=== PATIENT | female | born 1955 | race Caucasian/White ===

== ENCOUNTER 2020-03-10 11:35 | Outpatient (CLI) | payer BC, SELFPAY ==
--- NOTE | 2020-03-10 11:44 | MM_ITS ---
WS: [id number] SCREENING DIGITAL MAMMOGRAM WITH CAD HISTORY: SCREENING COMPARISON: 11/21/2018 and 01/31/2017 Bilateral CC and MLO views submitted. Computer aided detection analyzed. Breast composition: There are scattered areas of fibroglandular density. No suspicious masses, microc alcifications or architectural distortion. MM/[id number] IMPRESSION: BI-RADS: 1-Negative FOLLOW UP: 1 Year Follow-up
== END 2020-03-10 11:36 | disposition home or self-care (01) ==
LOC: RADSHAW 11:43
PROVIDERS: PCP Nurse Practitioner Family; Visit Provider Nurse Practitioner Family
DX: Z12.31 Encounter for screening mammogram for malignant neoplasm of breast (principal)
CPT/HCPCS: 77067

== ENCOUNTER → 2021-03-11 10:57 | Outpatient (BNVA) | payer OTHER, SELFPAY | PROVIDERS: PCP Family Medicine; Visit Provider Family Medicine | DX: E78.5 Hyperlipidemia, unspecified (principal); G47.00 Insomnia, unspecified; G43.909 Migraine, unspecified, not intractable, without status migrainosus; K21.9 Gastro-esophageal reflux disease without esophagitis; G44.209 Tension-type headache, unspecified, not intractable; J30.2 Other seasonal allergic rhinitis; F41.9 Anxiety disorder, unspecified; R53.83 Other fatigue | CPT/HCPCS: 80053; 80061; 82306; 84443; 85025 ==

== ENCOUNTER 2021-06-12 11:34 | Outpatient (CLI) | payer OTHER, SELFPAY ==
--- NOTE | 2021-06-12 11:42 | MM_ITS ---
WS: [id number] Bilateral screening digital mammogram, 06/12/2021 Clinical Data: SCREENING Comparison: 11/21/2018, 01/31/2017, 12/22/2015, 10/01/2014, 03/27/2013, 02/05/2011, 05/09/2008, 10/05/2006. Findings: The breast parenchymal pattern shows fibroglandular tissue No spiculated masses or clustered calcific ations are seen. There are no secondary signs of carcinoma. MM/[id number] Impression: 1. Negative bilateral mammogram unchanged. 2. Recommend annual screening mammograms. BIRADS: 1-Negative FOLLOW UP: 1 Year Follow-up The CAD electric organ checker was used.
== END 2021-06-12 11:35 | disposition home or self-care (01) ==
PROVIDERS: PCP Family Medicine; Visit Provider Family Medicine
DX: Z12.31 Encounter for screening mammogram for malignant neoplasm of breast (principal)
CPT/HCPCS: 77067

== ENCOUNTER → 2021-06-17 11:58 | Outpatient (BNVA) | payer OTHER, SELFPAY | PROVIDERS: PCP Family Medicine; Visit Provider Family Medicine | DX: E55.9 Vitamin D deficiency, unspecified (principal); E78.5 Hyperlipidemia, unspecified; F41.9 Anxiety disorder, unspecified; G44.209 Tension-type headache, unspecified, not intractable; G47.00 Insomnia, unspecified; J30.2 Other seasonal allergic rhinitis; G43.909 Migraine, unspecified, not intractable, without status migrainosus; K21.9 Gastro-esophageal reflux disease without esophagitis | CPT/HCPCS: 80053; 80061; 82306; 84443; 85025 ==

== ENCOUNTER → 2021-06-26 11:12 | Outpatient (BNVA) | payer OTHER, SELFPAY | PROVIDERS: PCP Family Medicine; Visit Provider Nurse Practitioner Family | DX: M25.532 Pain in left wrist (principal) | CPT/HCPCS: 73110 ==

== ENCOUNTER → 2021-10-13 10:02 | Outpatient (BNVA) | payer OTHER, SELFPAY | PROVIDERS: PCP Family Medicine; Visit Provider Family Medicine | DX: M25.562 Pain in left knee (principal) | CPT/HCPCS: 73562 ==

== ENCOUNTER 2022-01-22 06:37 | Outpatient (CLI) | payer OTHER, SELFPAY ==
--- NOTE | 2022-01-22 06:44 | MR_ITS ---
WS: [id number] MRI LEFT KNEE HISTORY: LEFT KNEE PAIN COMPARISON: Radiograph 10/13/2021 Anterior cruciate ligament: Intact. Posterior cruciate ligament: Intact. Medial collateral ligament: Small amount of fluid surrounding the MCL is probably related to arthriti s in the medial compartment. No MCL tear. Posterior lateral corner structures: Intact. Medial menisci: Abnormal signal in the anterior horn and towards the posterior horn free edge. There is partial subluxation of the meniscus from the joint space. Abnormal signal in the mid body consiste nt with a radial tear. This abnormal signal is in the far lateral mid body and partially extruded. Me niscus extends into the inferior recess. Posterior horn has increased signal which is probably intras ubstance degeneration. Lateral meniscus: There is very minimal blunting of the posterior horn towards the free edge. Abnorma l signal is noted also on the coronal view suggesting this is probably a small radial tear. Extensor mechanism: Distal quadriceps tendon and patellar tendons are intact. Fluid and soft tissue: There is a large suprapatellar joint effusion. Large Graham's cyst. Graham's cys t extends over length of at least 4.5 cm. There is a small amount of edema extending inferiorly from the Graham's cyst which may be reactive fluid or partial rupture. Osseous and articular structures: Patellofemoral compartment: Mild narrowing of patellofemoral compartment. No marrow edema. Medial compartment: Moderate narrowing medial compartment with bone upon bone and loss of cartilage. Marginal osteophytes. There is a small amount of reactive marrow edema in the medial femoral condyle and tibial plateau. Lateral compartment: Very mild narrowing of the lateral compartment. Mild thinning and fissuring of t he cartilage. There is fluid surrounding the fabella. MR/MR knee LT wo con* [id number] IMPRESSION: 1. Large suprapatellar joint effusion and Graham's cyst. 2. Moderate internal derangement medial compartment with loss of cartilage, ma rrow edema and joint space narrowing. 3. Partially extruded meniscus from the medial compartment predominantly invol ving the anterior horn. There is a focal radial tear near the mid body of the partial extrusion. Meniscus extends slightly into the inferior recess. 4. Additional blunting free edge posterior horn lateral meniscus. Favor vertic al tear.
== END 2022-01-22 06:38 | disposition home or self-care (01) ==
LOC: RAD 06:38
PROVIDERS: PCP Family Medicine; Visit Provider Family Medicine
DX: M25.562 Pain in left knee (principal); M25.462 Effusion, left knee; M71.22 Synovial cyst of popliteal space [Baker], left knee
CPT/HCPCS: 73721

== ENCOUNTER 2022-04-19 12:30 | Observation (INO) | payer OTHER, SELFPAY ==
[2022-04-13 10:47] VITALS: BMI 29.2
--- NOTE | 2022-04-13 12:01 | ANES.PREANE2 ---
Pre-Anesthetic Assessment Height/Weight: Height 1.5 m Weight 65.771 kg Preop Diagnosis: OsteoarthritisLeft knee Operation Date: 04/19/22 12:10 Proposed Procedures p Left total knee arthroplasty:43073,M17.12(Left) - Lionel Hernandez MD Familial anesthetic complications: none Was Beta Di taken within 24 hours: N/A Was Clonidine taken within 24 hours: N/A Social No alcohol and No tobacco Exam alert, oriented x 3, clear to auscultation bilaterally and regular rate & rhythm Airway Submandibular: within normal limits Cervical ROM: within normal limits Mallampati: Class II Dentition: false GI Gastroesophageal Reflux Disease Metabolic Hyperlipidemia Neuropsych Anxiety Anesthetic Plan ASA status: 2 Anesthesia: Regional (specify below) (SAB with adductor blk) Medications/Allergies Home Medications Medication Instructions Recorded Confirmed Last Taken Type rjfytnuaza-ivfkeoptdjrml-ideddtgh 1 tab PO Q6H PRN #30 tab 06/17/21 04/13/22 Unknown Rx 50 mg-325 mg-40 mg tablet clonazepam 0.5 mg tablet 0.5 mg PO DAILY PRN #20 tab 06/17/21 04/13/22 Unknown Rx fluticasone propionate 50 1 spray INTRANASAL BID #16 gm 06/17/21 04/13/22 Unknown Rx mcg/actuation nasal spray,suspension (Flonase Allergy Relief) diclofenac sodium 1 % topical gel 4 g TOPICAL BID g 10/13/21 04/13/22 Unknown History meloxicam 7.5 mg tablet 7.5 mg PO DAILY 10/13/21 04/13/22 Unknown History acyclovir 5 % topical cream 1 applic TOPICAL TID PRN 04/13/22 04/13/22 Unknown History cetirizine 10 mg tablet 10 mg PO DAILY 04/13/22 04/13/22 Unknown History cholecalciferol (vitamin D3) 25 25 mcg PO DAILY 04/13/22 04/13/22 Unknown History mcg (1,000 unit) capsule (Vitamin D3) lysine 1,000 mg tablet 1,000 mg PO DAILY 04/13/22 04/13/22 Unknown History magnesium citrate 100 mg capsule 100 mg PO DAILY 04/13/22 04/13/22 Unknown History omeprazole 40 mg capsule,delayed 40 mg PO DAILY 04/13/22 04/13/22 Unknown History release rosuvastatin 5 mg tablet 5 mg PO BEDTIME 04/13/22 04/13/22 Unknown History trazodone 100 mg tablet 100 mg PO BEDTIME 04/13/22 04/13/22 Unknown History Allergies Allergy/AdvReac Type Severity Reaction Status Date / Time No Known Allergies Allergy Verified 03/09/22 09:18 [facility] Anesthesia Medical History Dyslipidemia Insomnia Migraine Family History Other CAD (coronary artery disease) COPD (chronic obstructive pulmonary disease) Diabetes Social History Smoking and tobacco status: never smoked Second hand smoke exposure: No Alcohol intake: current Alcohol intake frequency: holidays/special occasions only Alcohol type: wine Caregiver/support person: No Lives independently: Yes Household members: spouse Marital status: service: No Current occupational status: retired History of recent travel: Yes Details: 05/23 Out of state: Yes Current gender identity: Female Special beau needs: No Data Anesthesia Cardiac Studies: No Data to Display
[2022-04-19] VITALS (29 sets, daily range): BP systolic 102–157; BP diastolic 59–93; PULSE 58–124; RESP 13–26; TEMP 36.2–36.9; O2SAT 95–100
[2022-04-19] MEDS: sodium chloride 0.9% 1,000 ML 30 ML IV (08:17)
[2022-04-19] MEDS: oxyCODONE 20 mg ER (12 HR) Tablet PO (08:19)
[2022-04-19] MEDS: gabapentin 300 mg Capsule PO ×2 (08:19→18:27)
[2022-04-19] MEDS: CELEcoxib 200 mg Capsule 400 MG PO (08:20)
[2022-04-19] MEDS: acetaminophen 500 mg Tablet 1000 MG PO ×2 (08:20→15:44)
--- NOTE | 2022-04-19 08:42 | P.ANESUD_ITS ---
Pre-Anesthetic Update Pre-Anesthetic Assessment: Date of Surgery/Procedure: 04/19/22 Preop Christin gnosis: OsteoarthritisLeft knee Proposed Procedure: Operation Date: 04/19/22 09:35 Proposed Procedures p Left total knee arthroplasty:94508,M17.12(Left) - Lionel Hernandez MD Any changes to Pre-Anesthetic Assessment?: No Last Intake: Intake Last Liquid Date 04/18/22 Last Liquid Time 22:00 Last Solid Date 04/18/22 Last Solid Time 22:00 Vitals: Temperature 98.4 F 04/19/22 07:52 Temperature Source Temporal Artery S can 04/19/22 07:52 Pulse Rate 74 04/19/22 07:52 Respiratory Rate 18 04/19/22 08:19 Respiratory Effort 04/19/22 08:19 Respiratory Depth Normal 04/19/22 08:19 Respiratory Patter n 04/19/22 08:19 Blood Pressure 157/93 04/19/22 07:52 Blood Pressure Elana n 114 04/19/22 07:52 Pulse Oximetry 98 04/19/22 08:19 Oxygen Delivery Me thod 04/19/22 07:53 Exam: Pre-Anes Outpt Exam: alert, oriented x 3, clear to auscultation bilaterally and regular rate & rhythm Cardiac Studies: No Data to Display
--- NOTE | 2022-04-19 08:42 | ANES.PROC ---
Anesthesia Procedures Procedure/Date: 04/19/22 Nerve Block ^: Nerve Block 1: Main Anesthesia: spinal anesthesia block Time Out Performed: Yes Consent: requested by attending/covering physician, from patient, risks and benefits reviewed and patient agrees to proceed Nerve block location: adductor canal (L) Anesthesia monitors applied: pulse oximetry, EKG, BP cuff and oxygen Nerve block position: semi sitting Anesthetic Used: ropivicaine 0.5% (30) and with decadron (4 mg) Ultrasound used to: recognize landmarks and visualize and ID femerol nerve Nerve Stimulator Used?: No Interscalene/Femoral BLK: 2 stimuplex 22 g needle used for position and inplane approach, visualize local anesthetic spread and no vascular puncture identified Injection: neg aspiration of heme Patient Tolerated Procedure: well Complications: none
--- NOTE | 2022-04-19 10:13 | P.HP_ITS ---
Same Day Surgery H&P Indication for Procedure/HPI DATE OF PROCEDURE: April 19, 2022 CHIEF COMPLAINT/INDICATIONFOR SURGICAL PROCEDURE: Osteoarthritis left knee here for total knee replacement PREOP DIAGNOSIS: OsteoarthritisLeft knee PLANNED PROCEDURE: Operation Date: 04/19/22 09:35 Proposed Procedures p Left total knee arthroplasty:47162,M17.12(Left) - Lionel Hernandez MD 66-year-old female with nearly 1 year history of progressive knee pain. Has tried multiple anti-inflammatories injections without help. Describes an inab ility to ambulate more than 1 block without pain. Difficulty sleeping at night. Here for left total knee arthroplasty Medications/Allergies* Home Medications Medication Instructions Recorded Confirmed Type diclofenac sodium 1 % topical gel 4 g TOPICAL BID g 10/13/21 04/19/22 History meloxicam 7.5 mg tablet 7.5 mg PO DAILY 10/13/21 04/19/22 History acyclovir 5 % topical cream 1 applic TOPICAL TID PRN 04/13/22 04/19/22 History cetirizine 10 mg tablet 10 mg PO DAILY 04/13/22 04/19/22 History cholecalciferol (vitamin D3) 25 25 mcg PO DAILY 04/13/22 04/19/22 History mcg (1,000 unit) capsule (Vitamin D3) lysine 1,000 mg tablet 1,000 mg PO DAILY 04/13/22 04/19/22 History magnesium citrate 100 mg capsule 100 mg PO DAILY 04/13/22 04/19/22 History omeprazole 40 mg capsule,delayed 40 mg PO DAILY 04/13/22 04/19/22 History release rosuvastatin 5 mg tablet 5 mg PO BEDTIME 04/13/22 04/19/22 History trazodone 100 mg tablet 100 mg PO BEDTIME 04/13/22 04/19/22 History Allergies/Adverse Reactions Allergy/AdvReac Type Severity Reaction Status Date / Time No Known Allergies Allergy Verified 04/19/22 08:02 Current Medications: Generic Name Dose Route Start Last Admin Trade Name Freq PRN Reason Stop Dose Admin Sodium Chloride 1,000 mls @ 30 mls/hr 04/19/22 07:45 04/19/22 08:17 Sodium Chloride 0.9% IV 04/20/22 07:44 30 mls/hr .Q24H TERESA Administration Pertinent History/Comorbid Conditions* Medical History (Updated 03/09/22 @ 09:54 by Lionel Hernandez MD) Dyslipidemia Insomnia Migraine Family History (Updated 04/07/20 @ 09:41 by Estefani Hwang LPN) Diabetes CAD (coronary artery disease) COPD (chronic obstructive pulmonary disease) Social History Smoking and tobacco status: never smoked Second hand smoke exposure: No Alcohol intake: current Alcohol intake frequency: holidays/special occasions only Alcohol type: wine Caregiver/support person: No Lives independently: Yes Household members: spouse Marital status: service: No Current occupational status: retired History of recent travel: Yes Details: [place] 05/23 Out of state: Yes Current gender identity: Female Special beau needs: No Pertinent Exam Findings alert, oriented x 3, clear to auscultation bilaterally, regular rate & rhythm and operative site marked Recommendations Surgery/Procedure today Coding Level of Care Code Acute Automatic Cigar Wrapper Tender for Elisabeth Kiran
[2022-04-19] MEDS: ceFAZolin 2,000 MG in sodium chloride 0.9% (plus) 50 ML 100 MG IV ×2 (10:23→18:27)
[2022-04-19] MEDS: tranexamic acid 1,000 mg/10mL SDV 1000 MG IV (10:40)
[2022-04-19] MEDS: tobramycin 40 mg/mL SDV 2mL 160 MG INJECTION (11:10)
[2022-04-19] MEDS: sodium chloride 0.9% 100 mL Bag XX (11:12)
[2022-04-19] MEDS: tranexamic acid 1,000 mg/10mL SDV 1000 MG XX (11:13)
[2022-04-19] MEDS: ketorolac 30 mg/mL INJ XX (11:14)
[2022-04-19] MEDS: EPINEPHrine 1 mg/mL INJ XX (11:15)
--- NOTE | 2022-04-19 12:07 | P.OP_ITS ---
Operative Report Date of procedure: April 19, 2022 Pre-op diagnosis: Preop Diagnosis OsteoarthritisLeft knee Post-op diagnosis: same Post-op diagnosis: Same Post-op findings: Same Procedure done: Left total knee arthroplasty Implants: [place] total knee arthroplasty components were used includin) Size 3 triathalon cruciate retaining femoral component 2) Size 4 Tritanium tibial component 3) 29 mm /9 mm thickness Tritanium asymetric patella 4) Size 4/9 mm thickness CR tibial bearing insert Pathology: none sent Surgeon: Lionel Hernandez Anesthesia: Nerve Block (Spinal, adductor canal block) Estimated blood loss (mL): 100 Findings: The patient eburnated bone over the medial femoral condyle and medial tibial plateau and near full-thickness loss over the patella Condition: stable Disposition: PACU Procedure: The patient was taken to the operating room. Patient was given 1 g of tranexamic acid . The above anesthesia provided by the anesthesia service. A timeout was performed. The patient was prepped and draped in the usual fashion with the lower extremity exposed. A anterior incision was made, midline, from a point proximal to the patella to the distal tibial tubercle. The knee was entered through a medial parapatellar approach. The patella could be displaced laterally and the knee flexed. The patellar fat pad was resected to provide better visibility. Retractors were placed medially and laterally adjacent to the tibial plateau. The femoral canal was drilled in line with the longitudinal axis of the femur. Intramedullary femoral guide for used to make a distal femoral cut in 5 degrees of valgus, resecting 8 mm from the more prominent condyle. Next the extra medullary tibial guide was placed in alignment with the longitudinal axis of the tibia. The cutting guides were set to remove just over 9 mm from the high tibial plateau. The proximal tibia was then cut. The femoral measuring guide was then placed over the distal femur. Rotation was verified checking the relationship of the guide to the condyle and the trochlear groove. The femur was measured and cut for the desired femoral component. The desired tibial baseplate was then chosen. A trial reduction with the femur tibial baseplate and polyethylene was done, assuring that the knee was stable throughout full motion. Ligament balancing involved nothing more than a release of the deep medial collateral ligament.The tibia was prepared for the tibial baseplate. Patellar thickness was then measured. The patella was cut removing articular cartilage and prepared for appropriate size patellar button. surfaces were cleaned with a gentamicin solution. The femur tibia and patella were then press- fit into place. The posterior capsule and collateral ligaments were then injected with a solution of 100 mL of 0.2% ropivacaine, 1 mL of a 1:1000 epinephrine solution, 30 mg of Toradol, and 1 g of tranexamic acid. Final polyethylene component was then snapped into place into the tibia. The extensor retinaculum was closed with a running 1 Stratafix interrupted 1 Ethibond. The subcutaneous tissues were closed with 2-0 Vicryl and the skin was closed with a running 4-0 Stratafix. The wound was covered with a Dermabond Prineo dressing. It was covered with 4xrs and a compressive Tubigauze was applied. The patient was taken to recovery room in stable condition.
--- NOTE | 2022-04-19 12:15 | XR_ITS ---
WS: [id number] XR knee LT -2V [id number] REASON FOR EXAM: Status post left total knee FINDINGS: Total left knee arthroplasty. Prosthetic components are in proper position and alignment. No bony abnormality. XR/XR [place] - [id number] IMPRESSION: Total left knee arthroplasty without abnormality.
--- NOTE | 2022-04-19 17:00 | ANE.PACU2 ---
Inpatient post-anesthesia follow up: Airway intact: Yes Vital signs: Temperature 97.6 F Pulse Rate 66 Respiratory Rate 16 Blood Pressure 128/78 Pulse Oximetry 100 Oxygen Delivery Me thod Room Air Oxygen Flow Rate 5 Fraction of Inspir ed Oxygen Hydration adequate: Yes Nausea and vomiting: No Pain level: 1 Mental status: Baseline
[2022-04-19] MEDS: oxyCODONE 5 mg IR Tab/Cap PO (19:00)
[2022-04-19] MEDS: CELEcoxib 200 mg Capsule PO (22:00)
[2022-04-20 00:04] VITALS: RESP 15
[2022-04-20] MEDS: oxyCODONE 5 mg IR Tab/Cap PO ×3 (00:04→10:54)
[2022-04-20] MEDS: acetaminophen 500 mg Tablet 1000 MG PO ×2 (00:04→08:58)
[2022-04-20] MEDS: ceFAZolin 2,000 MG in sodium chloride 0.9% (plus) 50 ML 100 MG IV ×2 (02:33→10:55)
[2022-04-20 04:13] VITALS: BP 130/77; PULSE 58; TEMP 36.7; O2SAT 98
[2022-04-20 05:54] VITALS: RESP 15
[2022-04-20] MEDS: sodium chloride 0.9% 1,000 ML 70 ML IV (05:55)
[2022-04-20] MEDS: ondansetron 2 mg/ML SDV 2 mL 4 MG IVP (08:02)
[2022-04-20] MEDS: pantoprazole DR 40 mg Tablet PO (08:59)
[2022-04-20] MEDS: gabapentin 300 mg Capsule PO (08:59)
[2022-04-20] MEDS: CELEcoxib 200 mg Capsule PO (08:59)
[2022-04-20] MEDS: aspirin 325 mg EC Tablet PO (08:59)
--- NOTE | 2022-04-20 09:04 | P.DS_ITS ---
Discharge Providers Date of Admission: 04/19/22 12:30 Date of Discharge: April 20, 2022 Attending Provider at Admission: Lionel Ross MD Attending Provider at Discharge: Lionel Ross MD Primary Care Provider: Suzanna Chilel MD Hospital Course Hospital Course The patient tolerated surgery well. They remained hemodynamically stable. They was begun on aspirin and foot for DVT prophylaxis. The patient was mobilized with therapy beginning the day of surgery and by the first postoperative day independent with the walker. As the pain was adequately controlled and they were fully mobile they were discharged home. Physical Exam Narrative: On the day of discharge the knee incision was clean. They had no drainage. There is minimal swelling in the thigh and knee and the calf. No distal neurovascular deficits were noted Discharge Data Studies Completed and Pending Completed Studies During Hospitalization Category Date Time Status XR knee LT 1-2V [id number] Routine Exams 04/19/22 12:15 Completed Radiology Impressions Knee X-Ray 04/19/22 12:15 IMPRESSION: Total left knee arthroplasty without abnormality. Laboratory Results Hgb 9.0 g/dL (11.5-15.3) L 04/20/22 04:06 Vitals Last Vital Signs Temp 98.1 F 04/20/22 04:13 Pulse 58 L 04/20/22 04:13 Resp 15 04/20/22 05:54 BP 130/77 04/20/22 04:13 Pulse Ox 98 04/20/22 04:13 Discharge Plan Discharge Patient Disposition: Home Condition: Stable Prescriptions: New oxycodone 5 mg Tablet 5 mg PO Q4H PRN (Reason: Moderate Pain) 7 Days Qty: 30 0RF acetaminophen 500 mg Tablet 1,000 mg PO Q8H 14 Days Qty: 84 0RF aspirin 325 mg Tablet,Delayed Release (Dr/Ec) 325 mg PO DAILY 30 Days Qty: 30 0RF celecoxib 200 mg Capsule 200 mg PO Q12H 14 Days Qty: 28 0RF gabapentin 300 mg Capsule 300 mg PO BID 7 Days Qty: 14 0RF Continued clonazepam 0.5 mg tablet 0.5 mg PO DAILY PRN (Reason: anxiety) Qty: 20 2RF gfyeupjklq-vbtnmltkoywsg-qniu 50-325-40 mg tablet 1 tab PO Q6H PRN (Reason: pain) Qty: 30 5RF fluticasone propionate [Flonase Allergy Relief] 50 mcg/actuation spray,suspension 1 spray INTRANASAL BID Qty: 16 5RF Rx Instructions: administer into each nostril diclofenac sodium 1 % gel 4 g topical BID 0RF Rx Instructions: apply to single knee, ankle, foot; for foot includes sole/toes/top of foot rosuvastatin 5 mg tablet 5 mg PO BEDTIME Qty: 90 0RF trazodone 100 mg tablet 100 mg PO BEDTIME Qty: 90 0RF omeprazole 40 mg capsule,delayed release(DR/EC) 40 mg PO DAILY Qty: 90 0RF lysine 1,000 mg Tablet 1,000 mg PO DAILY 0RF cholecalciferol (vitamin D3) [Vitamin D3] 25 mcg (1,000 unit) Capsule 25 mcg PO DAILY 0RF magnesium citrate 100 mg Capsule 100 mg PO DAILY 0RF cetirizine 10 mg tablet 10 mg PO DAILY 0RF acyclovir 5 % cream 1 applic topical TID PRN (Reason: FEVER BLISTER) 0RF Held meloxicam 7.5 mg tablet 7.5 mg PO DAILY 0RF Hold Instructions: Resume on 05/04/22. Discharge Orders: Discharge Order (Routine); Ordered 04/20/22 Ordered By: Lionel Ross Referrals: Jose A Ibanez FNP [Physician Needle Punch Machine Operator] - 04/23/22 9:00 am Discharge Activity: Limit activity as instructed Patient Instructions: Opioid Safety Activity Restrictions/Additional Instructions: Okay to shower Keep Tubigauze sleeve in place for swelling. Okay to remove for hygiene. Apply FirstIce up to 20 min/hr for pain and swelling Take Celebrex twice a day for the next 15 days for pain , discontinue other anti-inflammatories Take Neurontin twice a day for 7 days. Take Tylenol 500mg (2 tabs) as needed 3 times a day for mild pain take oxycodone for breakthrough pain. Exercises per physical therapy. May weight-bear as tolerated on total knee arthroplasty IF HAVE ANY PROBLEMS OR QUESTIONS CALL [facility] AND ASK TO HAVE DR. ROSS PAGESapna. Discharge Attestations Time Spent in Discharge Care*: other Quality Metrics Clinical Quality Measures [ No reported AMI, CVA or VTE this stay] Coding Level of Care Code Acute Chg FW DC note
[2022-04-20 10:54] VITALS: RESP 14
[2022-04-20 11:40] VITALS: BP 128/78; PULSE 66; RESP 16; TEMP 36.4; O2SAT 100
[2022-04-20 13:20] VITALS: BP 128/78; PULSE 66; RESP 16; TEMP 36.4; O2SAT 100
== END 2022-04-20 13:20 | disposition home or self-care (01) ==
LOC: MEDSURG 12:45 → OBGYN 13:32
PROVIDERS: Admitting Provider Orthopaedic Surgery; PCP Family Medicine; Visit Provider Orthopaedic Surgery
PROC: (CPT 27447; principal; 2022-04-19 09:15)
DX: M17.12 Unilateral primary osteoarthritis, left knee (principal); K21.9 Gastro-esophageal reflux disease without esophagitis; E78.5 Hyperlipidemia, unspecified; F41.9 Anxiety disorder, unspecified; Z82.49 Family history of ischemic heart disease and other diseases of the circulatory system; Z83.3 Family history of diabetes mellitus
CPT/HCPCS: 27447; 36415; 73560; 85018; 97110; 97116; 97161; 97165; C1776; G0378; J0171; J1100; J1885; J2250; J2405; J2704; J2795; J3010; J3260; J3490; J7030

== ENCOUNTER 2022-05-17 06:00 | Outpatient (RCR) | payer OTHER, BC, MEDICAID, SELFPAY | END 2022-06-02 23:59 | disposition home or self-care (01) | LOC: APT 06:00 | PROVIDERS: PCP Family Medicine; Visit Provider Orthopaedic Surgery | DX: Z96.652 Presence of left artificial knee joint (principal) | CPT/HCPCS: 97110; 97140; 97161 ==

== ENCOUNTER → 2022-05-18 14:05 | Outpatient (BNVA) | payer OTHER, BC, SELFPAY | PROVIDERS: PCP Family Medicine; Visit Provider Family Medicine | DX: E55.9 Vitamin D deficiency, unspecified (principal); E78.5 Hyperlipidemia, unspecified; D64.9 Anemia, unspecified | CPT/HCPCS: 80053; 80061; 82306; 84443; 85025 ==

== ENCOUNTER → 2022-05-20 08:50 | Outpatient (BNVA) | payer OTHER, BC, SELFPAY | PROVIDERS: PCP Family Medicine; Visit Provider Nurse Practitioner Family | DX: Z96.652 Presence of left artificial knee joint (principal) | CPT/HCPCS: 73560; 73565 ==

== ENCOUNTER 2022-06-03 06:00 | Outpatient (RCR) | payer OTHER, BC, MEDICAID, SELFPAY | END 2022-07-02 23:59 | disposition home or self-care (01) | LOC: APT 06:00 | PROVIDERS: PCP Family Medicine; Visit Provider Orthopaedic Surgery | DX: Z96.652 Presence of left artificial knee joint (principal) | CPT/HCPCS: 97110; 97140 ==

== ENCOUNTER 2022-07-16 09:34 | Outpatient (CLI) | payer BC, MEDICAID, SELFPAY ==
--- NOTE | 2022-07-16 10:01 | MM_ITS ---
WS: [id number] Bilateral screening 3D tomosynthesis digital mammogram, 07/16/2022 Clinical Data: SCREEN Comparison: 05/12/2021, 03/10/2020, 11/21/2018, 01/31/2017, 12/22/2015, 10/01/2014, 03/27/2013, 02/05/2011, 05/09, 10/05/2006. Findings: The breast parenchymal pattern shows fibroglandular tissue. No spiculated masses or clustered calcifi cations are seen. There are no secondary signs of carcinoma. MM/[place] [id number] Impression: 1. Negative bilateral mammogram unchanged. 2. Recommend annual screening mammograms. BIRADS: 1-Negative FOLLOW UP: 1 Year Follow-up The CAD checker cashier was used.
== END 2022-07-16 09:35 | disposition home or self-care (01) ==
LOC: RAD 09:34
PROVIDERS: PCP Family Medicine; Visit Provider Family Medicine
DX: Z12.31 Encounter for screening mammogram for malignant neoplasm of breast (principal)
CPT/HCPCS: 77063; 77067

== ENCOUNTER → 2022-08-12 09:39 | Outpatient (BNVA) | payer BC, MEDICAID, SELFPAY | PROVIDERS: PCP Family Medicine; Visit Provider Nurse Practitioner Family | DX: Z96.652 Presence of left artificial knee joint (principal) | CPT/HCPCS: 73560; 73565 ==

== ENCOUNTER → 2022-12-29 09:44 | Outpatient (BNVA) | payer MEDICARE, MEDICAID, SELFPAY | PROVIDERS: PCP Family Medicine; Visit Provider Orthopaedic Surgery | DX: M17.11 Unilateral primary osteoarthritis, right knee (principal) | CPT/HCPCS: 73560; 73565; 99213 ==

== ENCOUNTER 2022-12-31 12:48 | Outpatient (CLI) | payer MEDICARE, MEDICAID, SELFPAY ==
--- NOTE | 2022-12-31 13:00 | CT_ITS ---
WS: [id number] CT RIGHT KNEE, NONCONTRAST TECHNIQUE: Noncontrast CT of the RIGHT knee to include the RIGHT hip and ankle. CLINICAL INFORMATION: pre op planning COMPARISON: None. DLP: 885.[address] scans at [facility] use at least one of these dose optimization techniques: automated e xposure control; mA and/or kV adjustment per patient size (includes targeted exams where dose is matc hed to clinical indication); or iterative reconstruction. FINDINGS: LEFT TKA. Moderate arthritis RIGHT knee with moderate medial compartment narrowing. Moderate degenera tive narrowing at the patellofemoral articulation. Small suprapatellar effusion. Slight hypertrophic changes along the joint line. A few sigmoid diverticuli. CT/CT knee RT wo con* [id number] IMPRESSION: Images obtained for preoperative purposes.
== END 2022-12-31 12:49 | disposition home or self-care (01) ==
LOC: RAD 12:53
PROVIDERS: PCP Family Medicine; Visit Provider Orthopaedic Surgery
DX: Z01.818 Encounter for other preprocedural examination (principal); M13.861 Other specified arthritis, right knee
CPT/HCPCS: 73700

== ENCOUNTER 2023-01-31 09:46 | Observation (INO) | payer MEDICARE, MEDICAID, SELFPAY ==
[2023-01-24 09:21] VITALS: BMI 28.3
--- NOTE | 2023-01-24 15:56 | ANES.PREANE2 ---
Pre-Anesthetic Assessment Height/Weight: Height 1.5 m Weight 63.503 kg Preop Diagnosis: OsteoarthritisLeft knee Operation Date: 01/31/23 10:15 Proposed Procedures p right total knee makoplasty/ 53760,m17.11(Right) - Lionel Hernandez MD Familial anesthetic complications: none Was Beta Di taken within 24 hours: N/A Was Clonidine taken within 24 hours: N/A Social No alcohol and No tobacco Exam alert, oriented x 3, clear to auscultation bilaterally and regular rate & rhythm Airway Submandibular: within normal limits Cervical ROM: within normal limits Mallampati: Class II Dentition: false GI Gastroesophageal Reflux Disease Metabolic Hyperlipidemia [facility] [place] Osteoarthritis/DJD Neuropsych Anxiety and Depression Anesthetic Plan ASA status: 2 Anesthesia: Regional (specify below) (SAB with adductor blk) Medications/Allergies Home Medications Medication Instructions Recorded Confirmed Last Taken Type lysine 1,000 mg tablet 1,000 mg PO DAILY 04/13/22 01/24/23 01/24/23 History acyclovir 5 % topical cream 1 applic topical TID PRN FEVER 04/28/22 01/24/23 Unknown Rx BLISTER #5 grams tznctvmfft-cgoxqjonqlhgi-gfnbglbh 1 tab PO Q6H PRN pain #30 tabs 04/28/22 01/24/23 Unknown Rx 50 mg-325 mg-40 mg tablet clonazepam 0.5 mg tablet 0.5 mg PO DAILY PRN anxiety #20 04/28/22 01/24/23 Unknown Rx tabs diclofenac sodium 1 % topical gel 4 g topical BID #100 grams 04/28/22 01/24/23 Unknown Rx cetirizine 10 mg tablet (Allergy 10 mg PO DAILY 01/24/23 01/24/23 01/24/23 History Relief (cetirizine)) fluticasone propionate 50 1 spray intranasal BID 01/24/23 01/24/23 01/24/23 History mcg/actuation nasal spray,suspension omeprazole 40 mg capsule,delayed 40 mg PO DAILY 01/24/23 01/24/23 01/24/23 History release rosuvastatin 5 mg tablet 5 mg PO DAILY 01/24/23 01/24/23 01/24/23 History trazodone 100 mg tablet 100 mg PO DAILY 01/24/23 01/24/23 01/24/23 History Allergies Allergy/AdvReac Type Severity Reaction Status Date / Time No Known Allergies Allergy Verified 12/29/22 10:11 [facility] Anesthesia Medical History (Updated 12/29/22 @ 10:19 by Lionel Hernandez MD) Dyslipidemia Insomnia Migraine Family History Other CAD (coronary artery disease) COPD (chronic obstructive pulmonary disease) Diabetes Social History Smoking and tobacco status: never smoked Second hand smoke exposure: No Alcohol intake: current Alcohol intake frequency: holidays/special occasions only Alcohol type: wine Substance/Drug Use: never Caregiver/support person: No Lives independently: Yes Household members: spouse Marital status: service: No Current occupational status: retired Current gender identity: Female Special beau needs: No Data Anesthesia Cardiac Studies: No Data to Display
[2023-01-31] VITALS (22 sets, daily range): BP systolic 103–149; BP diastolic 59–83; PULSE 62–89; RESP 15–19; TEMP 35.6–36.5; O2SAT 87–98
[2023-01-31] MEDS: sodium chloride 0.9% 1,000 ML 30 ML IV (06:00)
[2023-01-31] MEDS: acetaminophen 500 mg Tablet 1000 MG PO ×3 (06:05→22:46)
[2023-01-31] MEDS: oxyCODONE 20 mg ER (12 HR) Tablet PO (06:06)
[2023-01-31] MEDS: CELEcoxib 200 mg Capsule 400 MG PO (06:06)
[2023-01-31] MEDS: gabapentin 300 mg Capsule PO ×2 (06:06→17:27)
--- NOTE | 2023-01-31 06:50 | P.ANESUD_ITS ---
Pre-Anesthetic Update Pre-Anesthetic Assessment: Date of Surgery/Procedure: 01/31/23 Preop Christin gnosis: Osteoarthritis right knee Proposed Procedure: Operation Date: 01/31/23 07:00 Proposed Procedures p right total knee makoplasty/ 02238,m17.11(Right) - Lionel Hernandez MD Any changes to Pre-Anesthetic Assessment?: No Last Intake: Intake Last Liquid Date 01/30/23 Last Liquid Time 21:30 Last Solid Date 01/30/23 Last Solid Time 21:30 Vitals: Temperature 97.7 F 01/31/23 05:49 Temperature Source Temporal Artery S can 01/31/23 05:49 Pulse Rate 64 01/31/23 05:49 Respiratory Rate 16 01/31/23 06:06 Respiratory Effort Spontaneous 01/31/23 06:06 Respiratory Depth Normal 01/31/23 06:06 Respiratory Patter n Normal 01/31/23 06:06 Blood Pressure 139/73 01/31/23 05:49 Blood Pressure Elana n 95 01/31/23 05:49 Pulse Oximetry 98 01/31/23 06:06 Oxygen Delivery Me thod Room Air 01/31/23 05:49 Exam: Pre-Anes Outpt Exam: alert, oriented x 3, clear to auscultation bilaterally and regular rate & rhythm Cardiac Studies: No Data to Display
--- NOTE | 2023-01-31 06:50 | ANES.PROC ---
Anesthesia Procedures Procedure/Date: 01/31/23 Nerve Block ^: Nerve Block 1: Main Anesthesia: spinal anesthesia block Time Out Performed: Yes Consent: requested by attending/covering physician, from patient, risks and benefits reviewed and patient agrees to proceed Nerve block location: adductor canal Anesthesia monitors applied: pulse oximetry, EKG, BP cuff and oxygen Nerve block position: supine Anesthetic Used: ropivicaine 0.5% (30 ml) and with decadron (4 mg) Ultrasound used to: recognize landmarks and visualize and ID femerol nerve Nerve Stimulator Used?: No Interscalene/Femoral BLK: 4 stimuplex 21 g needle used for position and inplane approach, visualize local anesthetic spread and no vascular puncture identified Injection: neg aspiration of heme Patient Tolerated Procedure: well and no complications Complications: none
--- NOTE | 2023-01-31 07:10 | W.PM.OPSFHP ---
Same Day Surgery H&P Indication for Procedure/HPI DATE OF PROCEDURE: January 31, 2023 CHIEF COMPLAINT/INDICATIONFOR SURGICAL PROCEDURE: Osteoarthritis of right knee here for total knee arthroplasty PREOP DIAGNOSIS: Osteoarthritis right knee PLANNED PROCEDURE: Operation Date: 01/31/23 07:00 Proposed Procedures p right total knee makoplasty/ 46360,m17.11(Right) - Lionel Hernandez MD 67-year-old here for right total knee arthroplasty. Has had right knee pain that has been present now for well over a year.? She underwent a left total knee arthroplasty and did very well with.? She describes now her right knee being more limiting issue.? She states she is really unable to walk at times more than a block due to pain.? She tried injections in the past on the left knee and they never helped and she does not think this is reasonable for the right.? She is taken [id number] ibuprofen and Naprosyn without improvement.? She states things is steadily progressing.? She is unable to engage in activities that she otherwise would enjoy to do.? For example she [place] and was unable to make it back in fourth [facility] she [facility] to [facility] due to pain.? Had no problems with her left total knee. Medications/Allergies* Home Medications Medication Instructions Recorded Confirmed Type lysine 1,000 mg tablet 1,000 mg PO DAILY 04/13/22 01/31/23 History cetirizine 10 mg tablet (Allergy 10 mg PO DAILY 01/24/23 01/31/23 History Relief (cetirizine)) fluticasone propionate 50 1 spray intranasal BID 01/24/23 01/31/23 History mcg/actuation nasal spray,suspension omeprazole 40 mg capsule,delayed 40 mg PO DAILY 01/24/23 01/31/23 History release rosuvastatin 5 mg tablet 5 mg PO DAILY 01/24/23 01/24/23 History trazodone 100 mg tablet 100 mg PO DAILY 01/24/23 01/24/23 History diclofenac sodium 1 % topical gel 4 g topical BID PRN arthritis 01/31/23 01/24/23 History Allergies/Adverse Reactions Allergy/AdvReac Type Severity Reaction Status Date / Time No Known Allergies Allergy Verified 12/29/22 10:11 Current Medications: Generic Name Dose Route Start Last Admin Trade Name Freq PRN Reason Stop Dose Admin Sodium Chloride 1,000 mls @ 30 mls/hr 01/31/23 05:45 01/31/23 06:00 Sodium Chloride 0.9% IV 02/01/23 05:44 30 mls/hr .Q24H TERESA Administration Pertinent History/Comorbid Conditions* Medical History (Updated 12/29/22 @ 10:19 by Lionel Hernandez MD) Dyslipidemia Insomnia Migraine Family History (Updated 04/07/20 @ 09:41 by Estefani Hwang LPN) Diabetes CAD (coronary artery disease) COPD (chronic obstructive pulmonary disease) Social History Smoking and tobacco status: never smoked Second hand smoke exposure: No Alcohol intake: current Alcohol intake frequency: holidays/special occasions only Alcohol type: wine Substance/Drug Use: never Caregiver/support person: No Lives independently: Yes Household members: spouse Marital status: service: No Current occupational status: retired Current gender identity: Female Special beau needs: No Pertinent Exam Findings alert, oriented x 3, clear to auscultation bilaterally, regular rate & rhythm and operative site marked KNEE RIGHT Slight varus alignment right knee Tenderness medial joint line ?RANGE OF MOTION: ? EXAMINED LIMB ? Extention:?10 degrees ? Flexion:?110 degrees Patella tracks well Patient collateral ligaments are stable Recommendations Surgery/Procedure today Coding Level of Care Code Acute Code for Chg Fwd Diagnoses
[2023-01-31] MEDS: ceFAZolin 2,000 MG in sodium chloride 0.9% (plus) 50 ML 100 MG IV ×3 (07:15→22:45)
[2023-01-31] MEDS: tranexamic acid 1,000 mg/10mL SDV 1000 MG IV (07:38)
[2023-01-31] MEDS: EPINEPHrine 1 mg/mL INJ XX (08:08)
[2023-01-31] MEDS: tranexamic acid 1,000 mg/10mL SDV 1000 MG XX (08:08)
[2023-01-31] MEDS: ketorolac 30 mg/mL INJ XX (08:08)
[2023-01-31] MEDS: sodium chloride 0.9% 100 mL Bag XX (08:10)
--- NOTE | 2023-01-31 09:08 | XR_ITS ---
WS: [id number] XR knee RT 1-2V 83017 REASON FOR EXAM: Right total knee FINDINGS: Total right knee arthroplasty. Components of the prosthesis are intact and in proper position and alignment. There appears to be a small vertically oriented bone fragment adjacent to the lateral femoral condyle prosthesis. Probably not significant, however may represent a small fracture fragment. Usual routine follow-up examinations well provide further evaluation. XR/XR knee RT 1-2V 84011 IMPRESSION: Right knee arthroplasty as above.
--- NOTE | 2023-01-31 09:09 | P.OP_ITS ---
Operative Report Date of procedure: January 31, 2023 Pre-op diagnosis: Preop Diagnosis Osteoarthritis right knee Post-op diagnosis: same Post-op diagnosis: Same Post-op findings: Same Procedure done: Right total knee arthroplasty Implants: Gala Triathalon total knee arthroplasty components were used includin) Size 4 triathalon cruciate retaining femoral component 2) Size 4 Tritanium tibial component 3) Size 4/9 mm thickness CS tibial bearing insert Pathology: none sent Surgeon: Lionel Hernandez Tire Trimmer Hand: Jose A Ibanez Tire Trimmer Hand: The nurse practitioner the nurse practitioner assisted with critical portions of the case including positioning, draping, exposure, component implantation, closure and dressing application and is present through the entirety of the case. Anesthesia: Nerve Block (Spinal, adductor canal block) Estimated blood loss (mL): 100 Findings: The patient eburnated bone over the medial femoral condyle, lateral femoral condyle and medial tibial plateau. There was minimal patellar intra-articular chondromalacia Condition: stable Disposition: PACU Procedure: The patient was taken to the operating room. Patient was given 1 g of tranexamic acid and 2 g of Ancef. The above anesthesia provided by [facility]. A timeout was performed. The patient was prepped and draped in the usual fashion with the lower extremity exposed. A anterior incision was made, midline, from a point proximal to the patella to the distal tibial tubercle. The knee was entered through a medial parapatellar approach. The patella could be displaced laterally and the knee flexed. The patellar fat pad was resected to provide better visibility. Retractors were placed medially and laterally adjacent to the tibial plateau. At a point approximately 8 cm above the patella, 2 small incisions were made with a scalpel blade and 2 long threaded pins were placed into the anterior medial femur engaging both cortices. The femoral arrays were placed over these pins and secured. At a point 8 cm distal to the tibial tubercle. 2 shorter bicortical threaded pins were placed across the anterior medial tibia and the tibial arrays placed. A checkpoint was made just proximal and medial to the medial femoral condyle and just medial to the tibial plateau. Small osteotomes were placed in the joint in both flexion and extension to determine ligamentous laxity. The femoral component was placed in 1 degree of varus and externally rotated 2 degrees to provide ligament balancing. The [employer] robot was then introduced to the field and the femur and tibia cut in accordance with our plan. A trial with the above components provided excellent stability and full range of motion. The femur was then prepared for the femoral pegs of the component in the tibia for the tibial component. The femur and tibia were then press-fit into place. An osteotome was used to remove the lateral 8 mm of the patella to minimize chances of later impingement. A neurectomy was accomplished circumferentially about the patella with electrocautery and lateral osteophytes removed. Surfaces were cleaned with a gentamicin solution. The femur and tibia were then press-fit into place. The posterior capsule and collateral ligaments were then injected with a solution of 100 mL of 0.2% ropivacaine, 1 mL of a 1:1000 epinephrine solution, 30 mg of Toradol, and 1 g of tranexamic acid. Final polyethylene component was then snapped into place into the tibia. The extensor retinaculum was closed with a running 1 Stratafix interrupted 1 Ethibond. The subcutaneous tissues were closed with 2-0 Vicryl and the skin was closed with a running 4-0 Stratafix. The wound was covered with a Dermabond Prineo dressing. It was covered with 4xrs and a compressive Tubigauze was applied. The patient was taken to recovery room in stable condition.
--- NOTE | 2023-01-31 09:14 | PC.NURSE ---
Pt arrived to PACU, awake, A&Ox3, pt denies any pain or nausea at this time. Dressing to right knee C/D/I, right foot p/w/d, cap refill <3 seconds, good pedal pulse. Ice pack applied. Pt reports sensation above level L2.
[2023-01-31] MEDS: sodium chloride 0.9% 1,000 ML 100 ML IV ×2 (10:21→20:23)
[2023-01-31] MEDS: oxyCODONE 5 mg IR Tab/Cap PO ×2 (12:22→20:23)
--- NOTE | 2023-01-31 13:09 | ANE.PACU2 ---
Inpatient post-anesthesia follow up: Airway intact: Yes Vital signs: Temperature 96.1 F Pulse Rate 70 Respiratory Rate 18 Blood Pressure 128/78 Pulse Oximetry 96 Oxygen Delivery Me thod Room Air Oxygen Flow Rate Fraction of Inspir ed Oxygen Hydration adequate: Yes Nausea and vomiting: No Pain level: 1 Mental status: Baseline
[2023-01-31] MEDS: morphine 4 mg/mL SDV 1 mL 2 MG IVP (15:36)
[2023-01-31] MEDS: CELEcoxib 200 mg Capsule PO (17:26)
[2023-01-31] MEDS: fluticasone nasal spray 16gm Btl 1 SPRAY INTRANASAL (17:27)
[2023-01-31] MEDS: sennosides-docusate Tablet 2 TAB PO (17:27)
--- NOTE | 2023-01-31 19:28 | PC.NURSE ---
Shift SUmmary: Uneventful shift. Patient was up to a chair for about 5 hours. Transfers with minimal assisstance. Alerted and oriented to person, place, time, and situation Pain well controlled. Right knee incision site is unremarkable. No swelling, no redness. Dressing is dry. Pedal pulses intact. Ice pack in place.
[2023-01-31] MEDS: hyDROXYzine 25 mg Capsule PO (22:46)
[2023-02-01 00:01] VITALS: BP 95/55; PULSE 51; RESP 16; TEMP 36.4; O2SAT 95
[2023-02-01] MEDS: ceFAZolin 2,000 MG in sodium chloride 0.9% (plus) 50 ML 100 MG IV (06:32)
[2023-02-01 06:33] VITALS: RESP 18; O2SAT 97
[2023-02-01] MEDS: oxyCODONE 5 mg IR Tab/Cap PO ×2 (06:33→10:37)
[2023-02-01] MEDS: CELEcoxib 200 mg Capsule PO (06:34)
[2023-02-01] MEDS: sodium chloride 0.9% 1,000 ML 100 ML IV (06:35)
[2023-02-01 07:41] VITALS: BP 111/64; PULSE 66; RESP 15; TEMP 36.6; O2SAT 95
[2023-02-01] MEDS: atorvastatin 40 mg Tablet 20 MG PO (08:45)
[2023-02-01] MEDS: cetirizine 10 mg Tablet PO (08:47)
[2023-02-01] MEDS: pantoprazole DR 40 mg Tablet PO (08:47)
[2023-02-01] MEDS: sennosides-docusate Tablet 2 TAB PO (08:47)
[2023-02-01] MEDS: trazodone 100 mg Tablet PO (08:48)
[2023-02-01] MEDS: aspirin 325 mg EC Tablet PO (08:48)
[2023-02-01] MEDS: gabapentin 300 mg Capsule PO (08:48)
[2023-02-01] MEDS: fluticasone nasal spray 16gm Btl 1 SPRAY INTRANASAL (08:53)
--- NOTE | 2023-02-01 09:35 | PC.CHAP ---
Pastoral Care Encounter/Spiritual Assessment Type of Contact [] Declined powerplant operator visit [] Patient/Family/Request visit [] Outpatient visit [] Follow-up visit [] Physician referral [] Code/Alert [x] Routine visit [] Staff referral [] Actively dying [] Patient sleeping [] Family support [] [] Out of room [] Palliative care [] [] Receiving care in room [] Pre-surgical visit [] Trauma [] Long length of stay [] ICU visit [] Other: Relational/Emotional Strength [x] Patient feels connected with others/family/visitors/staff [] Distress [] Loneliness/isolation [] Abandonment Spirituality of Patient [x] Person of Mayra [] Attends Moravian of their Mayra [x] Believes in Prayer [] Reads Bible or Nondenominational materials [] There are Spiritual issues to be addressed Health Services Rn Interventions [x] Prayer [] Active listening [] Non-anxious presence [x] Spiritual/emotional support [] Crisis/trauma care [] Spiritual counseling [] Bereavement support [] Provided bereavement packet [] Provided Bible/devotional materials [] Provided toy/stuffed animal, coloring book to patient or family member [] Provided Communion [] Anointing/[place] [] Salvation [x] Completed spiritual assessment [] Other: Impact on Illness or Injury [] Angry [] Fearful [] Anxious [] Often cries [] Exhaustion [] Unable to work [] Unable to attend taoist [] Unable to walk/stand [] Unable to read [] Unable to drive [] Unable to eat/drink [] Unable to sleep [] Unable to be with family [] Patient intubated [] Other: Summary Time spent with patient 5 min
[2023-02-01 10:37] VITALS: RESP 15
[2023-02-01 11:03] VITALS: RESP 15
--- NOTE | 2023-02-01 12:39 | PM.DCS ---
Discharge Providers Date of Admission: 01/31/23 09:46 Date of Discharge: February 01, 2023 Attending Provider at Admission: Lionel Ross MD Attending Provider at Discharge: Lionel Ross MD Primary Care Provider: Suzanna Chilel MD Reason for Visit Reason for Visit: M17.11 Brief History: The patient is a 67-year-old female with a 1 year history of progressive right knee pain here for total knee arthroplasty Hospital Course Hospital Course The patient tolerated surgery well. They remained hemodynamically stable. They was begun on aspirin and foot pumps for DVT prophylaxis. The patient was mobilized with therapy beginning the day of surgery and by the first postoperative day independent with the walker. As the pain was adequately controlled and they were fully mobile they were discharged home. Physical Exam Narrative: On the day of discharge the knee incision was clean. They had no drainage. There is minimal swelling in the thigh and knee and the calf. No distal neurovascular deficits were noted Discharge Data Studies Completed and Pending Completed Studies During Hospitalization Category Date Time Status XR knee RT 1-2V 32846 Routine Exams 01/31/23 09:08 Completed Radiology Impressions Knee X-Ray 01/31/23 09:08 IMPRESSION: Right knee arthroplasty as above. Laboratory Results Hgb 9.0 g/dL (11.5-15.3) L 02/01/23 04:25 Vitals Last Vital Signs Temp 97.8 F 02/01/23 07:41 Pulse 66 02/01/23 07:41 Resp 15 02/01/23 11:03 BP 111/64 02/01/23 07:41 Pulse Ox 95 02/01/23 07:41 O2 Del Method Room Air 02/01/23 07:41 Discharge Plan Discharge Patient Disposition: Home Health Service Condition: Stable Prescriptions: New acetaminophen 500 mg Tablet 500 mg PO Q8H 14 Days Qty: 42 0RF aspirin 325 mg Tablet,Delayed Release (Dr/Ec) 325 mg PO DAILY 30 Days Qty: 30 0RF celecoxib 200 mg Capsule 200 mg PO Q12H 14 Days Qty: 28 0RF gabapentin 300 mg Capsule 300 mg PO BID 7 Days Qty: 14 0RF oxycodone 5 mg Tablet 5 mg PO Q4H PRN (Reason: Moderate Pain) 7 Days Qty: 30 0RF Continued yjbvnbyhkr-xvlkfjglekdcu-fizc 50-325-40 mg tablet 1 tab PO Q6H PRN (Reason: pain) Qty: 30 5RF clonazepam 0.5 mg tablet 0.5 mg PO DAILY PRN (Reason: anxiety) Qty: 20 2RF acyclovir 5 % cream 1 applic topical TID PRN (Reason: FEVER BLISTER) Qty: 5 2RF lysine 1,000 mg Tablet 1,000 mg PO DAILY cetirizine [Allergy Relief (cetirizine)] 10 mg tablet 10 mg PO DAILY Rx Instructions: Take 1 tablet by mouth once daily omeprazole 40 mg capsule,delayed release(DR/EC) 40 mg PO DAILY Rx Instructions: Take 1 capsule by mouth once daily trazodone 100 mg tablet 100 mg PO DAILY Rx Instructions: TAKE 1 TABLET BY MOUTH ONCE DAILY AT BEDTIME fluticasone propionate 50 mcg/actuation spray,suspension 1 spray intranasal BID Rx Instructions: Use 1 spray(s) in each nostril twice daily rosuvastatin 5 mg tablet 5 mg PO DAILY Rx Instructions: TAKE 1 TABLET BY MOUTH AT BEDTIME Discontinued diclofenac sodium 1 % gel 4 g topical BID PRN (Reason: arthritis) Rx Instructions: apply to single knee, ankle, foot; for foot includes sole/toes/top of foot Discharge Orders: Discharge Order (Routine); Ordered 02/01/23 Ordered By: Lionel Ross Referrals: [facility] ([facility]) [Outside] Lionel Ross MD [Physician] - 02/15/23 8:45 am Discharge Diet: Advance as tolerated Discharge Activity: Limit activity as instructed Patient Instructions: Aspirin (By mouth), Gabapentin (By mouth), Oxycodone, Rapid Release (By mouth), Celecoxib (By mouth), Knee Replacement (GEN), Joint Replacement Stoplight, Opioid Safety Activity Restrictions/Additional Instructions: Okay to shower Keep Tubigauze sleeve in place for swelling. Okay to remove for hygiene. Apply FirstIce up to 20 min/hr for pain and swelling Take Celebrex twice a day for the next 15 days for pain , discontinue other anti-inflammatories Take Neurontin twice a day for 7 days. Take Tylenol 500mg as needed 3 times a day for mild pain take oxycodone for breakthrough pain. Exercises per physical therapy. May weight-bear as tolerated on total knee arthroplasty IF HAVE ANY PROBLEMS OR QUESTIONS CALL HOSPITAL SOAP TENDER AT AND ASK TO HAVE DR. ROSS PAGED. Discharge Attestations Time Spent in Discharge Care*: other Quality Metrics Clinical Quality Measures [ No reported AMI, CVA or VTE this stay] Coding Level of Care Code Acute Code for Chg Fwd Diagnoses
== END 2023-02-01 11:04 | disposition home health service (06) ==
LOC: MEDSURG 09:47
PROVIDERS: Admitting Provider Orthopaedic Surgery; PCP Family Medicine; Visit Provider Orthopaedic Surgery
PROC: 8E0Y0CZ Robotic Assisted Procedure of Lower Extremity, Open Approach (ICD-10-PCS; CPT 27447; principal; 2023-01-31 07:00)
DX: M17.11 Unilateral primary osteoarthritis, right knee (principal); E78.5 Hyperlipidemia, unspecified; K21.9 Gastro-esophageal reflux disease without esophagitis; Z79.899 Other long term (current) drug therapy
CPT/HCPCS: 27447; 36415; 73560; 85018; 97116; 97161; 97165; C1776; G0378; J0171; J0690; J1100; J1580; J1885; J2250; J2270; J2704; J2795; J3010; J7030

== ENCOUNTER → 2023-02-15 08:18 | Outpatient (BNVA) | payer MEDICARE, MEDICAID, SELFPAY | PROVIDERS: PCP Family Medicine; Visit Provider Orthopaedic Surgery | DX: Z96.651 Presence of right artificial knee joint (principal) | CPT/HCPCS: 99024 ==

== ENCOUNTER 2023-02-16 06:00 | Outpatient (RCR) | payer MEDICARE, MEDICAID, SELFPAY | END 2023-03-02 23:59 | disposition home or self-care (01) | LOC: APT 06:00 | PROVIDERS: Visit Provider Orthopaedic Surgery | DX: Z47.1 Aftercare following joint replacement surgery (principal); Z96.651 Presence of right artificial knee joint | CPT/HCPCS: 97110; 97161; 97530 ==

== ENCOUNTER 2023-03-03 06:00 | Outpatient (RCR) | payer MEDICARE, MEDICAID, SELFPAY | END 2023-04-01 23:59 | disposition home or self-care (01) | LOC: APT 06:00 | PROVIDERS: PCP Family Medicine; Visit Provider Orthopaedic Surgery | DX: Z47.1 Aftercare following joint replacement surgery (principal); Z96.651 Presence of right artificial knee joint | CPT/HCPCS: 97110; 97530 ==

== ENCOUNTER → 2023-03-15 08:32 | Outpatient (BNVA) | payer MEDICARE, MEDICAID, SELFPAY | PROVIDERS: Visit Provider Orthopaedic Surgery | DX: Z96.651 Presence of right artificial knee joint (principal) | CPT/HCPCS: 73560; 73565; 99024 ==

== ENCOUNTER → 2023-03-21 10:03 | Outpatient (BNVA) | payer MEDICARE, MEDICAID, SELFPAY | PROVIDERS: PCP Family Medicine; Visit Provider Family Medicine | DX: R53.83 Other fatigue (principal); R42 Dizziness and giddiness; E78.5 Hyperlipidemia, unspecified | CPT/HCPCS: 80053; 80061; 82306; 82607; 83540; 84443; 85025 ==

== ENCOUNTER 2023-08-05 07:59 | Outpatient (CLI) | payer MEDICARE, MEDICAID, SELFPAY ==
--- NOTE | 2023-08-05 08:00 | MM_ITS ---
WS: [id number] SCREENING DIGITAL TOMOSYNTHESIS MAMMOGRAM WITH CAD HISTORY: SCREENING COMPARISON: 07/16/2022, 06/12/2021 and 01/31/2017 Bilateral CC and MLO with tomosynthesis views submitted. Synthetic mammography reviewed. Computer aid ed detection analyzed. Breast composition: There are scattered areas of fibroglandular density. No suspicious masses, microc alcifications or architectural distortion. IMPRESSION: MM/[place] [id number] BI-RADS: 1-Negative FOLLOW UP: 1 Year Follow-up
== END 2023-08-05 08:00 | disposition home or self-care (01) ==
LOC: MOBLMAM 08:02
PROVIDERS: PCP Family Medicine; Visit Provider Family Medicine
DX: Z12.31 Encounter for screening mammogram for malignant neoplasm of breast (principal)
CPT/HCPCS: 77063; 77067

== ENCOUNTER → 2023-09-12 10:45 | Outpatient (BNVA) | payer MEDICARE, MEDICAID, SELFPAY | PROVIDERS: PCP Family Medicine; Visit Provider Family Medicine | DX: E78.5 Hyperlipidemia, unspecified (principal); K21.9 Gastro-esophageal reflux disease without esophagitis; F41.9 Anxiety disorder, unspecified; G43.909 Migraine, unspecified, not intractable, without status migrainosus | CPT/HCPCS: 80053; 80061; 84443; 85025 ==

== ENCOUNTER → 2024-07-17 11:59 | Outpatient (BNVA) | payer MEDICARE, MEDICAID, SELFPAY | PROVIDERS: PCP Family Medicine; Visit Provider Family Medicine | DX: E55.9 Vitamin D deficiency, unspecified (principal); E78.5 Hyperlipidemia, unspecified; F41.9 Anxiety disorder, unspecified; R53.83 Other fatigue; E03.9 Hypothyroidism, unspecified | CPT/HCPCS: 80053; 80061; 82607; 82652; 84443 ==

== ENCOUNTER 2024-08-14 13:04 | Outpatient (CLI) | payer MEDICARE, MEDICAID, SELFPAY ==
--- NOTE | 2024-08-14 13:20 | MM_ITS ---
WS: [id number] Bilateral screening 3D tomosynthesis digital mammogram, 08/14/2024 1:20 PM Clinical Data: SCREENING Comparison: 08/05/2023, 07/16/2022, 06/12/2021, 03/10/2020, 11/21/2018, 01/31/2017, 12/22/2015, 10/01/2014, , 02/05/2011, 05/09/2008, 10/05/2006. Findings: No spiculated masses or clustered calcifications are seen. There are no secondary signs of carcinoma . MM/MM scr BI tomosynthesis [id number] Impression: Negative bilateral mammogram unchanged. Recommend annual screening mammograms. BIRADS: 1 - Negative. FOLLOW UP: 1 Year Follow-up DENSITY: The breasts are almost entirely fatty. The CAD inventory checker was used
== END 2024-08-14 13:05 | disposition home or self-care (01) ==
LOC: MOBLMAM 13:17
PROVIDERS: PCP Family Medicine; Visit Provider Family Medicine
DX: Z12.31 Encounter for screening mammogram for malignant neoplasm of breast (principal)
CPT/HCPCS: 77063; 77067

== ENCOUNTER 2025-01-21 12:47 | Outpatient (CLI) | payer MEDICARE, SELFPAY ==
--- NOTE | 2025-01-21 13:00 | MM_ITS ---
WS: [id number] LEFT 3D TOMOSYNTHESIS DIGITAL MAMMOGRAPHY WITH CAD CLINICAL INFORMATION: N63.21 - Unspecified lump in the left breast, upper outer... HISTORY: LEFT breast lump COMPARISON: 2023 TECHNIQUE: 3 views of the left breast were obtained. FINDINGS: Scattered fibroglandular densities of the left breast. No suspicious mammographic abnormalities deep to the palpable marker. Ultrasound is pending. ULTRASOUND BREAST LEFT TECHNIQUE: Ultrasound left breast focused area of concern. CLINICAL INFORMATION: N63.21 - Unspecified lump in the left breast, upper outer... FINDINGS: Ultrasound LEFT breast 2 o'clock position 9 cm from the nipple. In the superficial soft tissue, there is a small ovoid nodule likely representing a small sebaceous cyst or lymph node measuring approximately 6 x 6 x 3 mm. No other suspicious findings. [id number] IMPRESSION: DENSITY: There are scattered areas of fibroglandular density. BI-RADS: 2 - Benign. FOLLOW UP: 1 Year Follow-up Recommend return to annual screening mammography.
--- NOTE | 2025-01-21 13:30 | US_ITS ---
WS: [id number] LEFT 3D TOMOSYNTHESIS DIGITAL MAMMOGRAPHY WITH CAD CLINICAL INFORMATION: N63.21 - Unspecified lump in the left breast, upper outer... HISTORY: LEFT breast lump COMPARISON: 2023 TECHNIQUE: 3 views of the left breast were obtained. FINDINGS: Scattered fibroglandular densities of the left breast. No suspicious mammographic abnormalities deep to the palpable marker. Ultrasound is pending. ULTRASOUND BREAST LEFT TECHNIQUE: Ultrasound left breast focused area of concern. CLINICAL INFORMATION: N63.21 - Unspecified lump in the left breast, upper outer... FINDINGS: Ultrasound LEFT breast 2 o'clock position 9 cm from the nipple. In the superficial soft tissue, there is a small ovoid nodule likely representing a small sebaceous cyst or lymph node measuring approximately 6 x 6 x 3 mm. No other suspicious findings. US/US breast LT limited* [id number] IMPRESSION: DENSITY: There are scattered areas of fibroglandular density. BI-RADS: 2 - Benign. FOLLOW UP: 1 Year Follow-up Recommend return to annual screening mammography.
== END 2025-01-21 12:48 | disposition home or self-care (01) ==
PROVIDERS: PCP Family Medicine; Visit Provider Clinical Nurse Specialist Adult Health
DX: N63.21 Unspecified lump in the left breast, upper outer quadrant (principal); R92.322 Mammographic fibroglandular density, left breast
CPT/HCPCS: 76642; 77061; G0279

== ENCOUNTER → 2025-03-25 08:19 | Outpatient (BNVA) | payer MEDICARE, SELFPAY | PROVIDERS: PCP Family Medicine; Visit Provider Family Medicine | DX: Z00.00 Encounter for general adult medical examination without abnormal findings (principal); E78.5 Hyperlipidemia, unspecified | CPT/HCPCS: 80053; 80061 ==

== ENCOUNTER → 2025-09-16 08:29 | Outpatient (BNVA) | payer MEDICARE, SELFPAY | PROVIDERS: PCP Family Medicine; Visit Provider Family Medicine | DX: E03.9 Hypothyroidism, unspecified (principal); F41.9 Anxiety disorder, unspecified; E78.5 Hyperlipidemia, unspecified; R53.83 Other fatigue | CPT/HCPCS: 80053; 80061; 82306; 82607; 84443; 85025 ==